=== PATIENT | male | born 1965 | race Caucasian/White ===

== ENCOUNTER 2022-11-06 20:47 | Emergency (ER) | payer SELFPAY ==
[2022-11-06] MEDS ORDERED: HYDROmorphone 0.5 MG/0.5 ML Syringe IVPUSH ONE (20:51)
[2022-11-06] MEDS ORDERED: Sodium Chloride 0.9% 1,000 ML IV SCH (21:00)
[2022-11-06] MEDS ORDERED: Sodium Chloride 0.9% 75 ML IV SCH (21:15)
[2022-11-06] MEDS ORDERED: Iopamidol 612 MG/ML 100 ML Bottle IV SCH (21:15)
[2022-11-06 21:30] LABS: ESTIMATED GFR 79 mL/min (>60)
[2022-11-06] MEDS ORDERED: Alum Hydrox/Mag Hydrox/Simeth 15 ML, Lidocaine 2% 15 ML PO ONE ×2 (23:02)
== END 2022-11-06 23:36 | disposition home or self-care (01) ==
LOC: JP.ED 20:47
DX: R10.13 Epigastric pain (principal); R14.0 Abdominal distension (gaseous); Z88.0 Allergy status to penicillin
CPT/HCPCS: 36415; 74177; 80053; 80307; 82150; 83605; 83690; 84484; 85025; 86140; 93005; 93010; 99283; 99285; A9270-GY; J3490; Q9967

== ENCOUNTER 2022-11-07 06:24 | Emergency (ER) | payer OTHER ==
[2022-11-07] MEDS ORDERED: Azithromycin 250 MG Tab PO ONE (09:05)
[2022-11-07] MEDS ORDERED: cefTRIAXone 500 MG, Lidocaine 1% 1 ML IM ONE ×2 (09:05)
== END 2022-11-07 10:55 | disposition home or self-care (01) ==
LOC: JP.ED 06:24
DX: T74.21XA Adult sexual abuse, confirmed, initial encounter (principal); I10 Essential (primary) hypertension; Z72.0 Tobacco use; Z88.0 Allergy status to penicillin
CPT/HCPCS: 80305-QW; 96372; 99284; A9270-GY; J0696